=== PATIENT | male | born 1945 | race Two or more races ===

== ENCOUNTER 2021-03-26 01:17 | Inpatient (IN) | payer MEDICARE, OTHER ==
[~2021-03-26] VITALS: Ht 162.6 cm; Wt 72.6 kg
--- NOTE | 2021-03-26 01:22 | NUR ---
PT BIBRA C/O SOB X30 MIN PRIOR TO ARRIVAL. PT AAOX4 BREATHING EVENLY AND UNLABORED, SATURATING 98% RA. UPON ASSESSMENT, PT HAS ABD DISTENTION. PER PT, HE HAS HX OF PARACENTISIS AND WAS LAST DRAINED FEBRUARY 27. PT SKIN WARM, DRY, AND INTACT. PT ATTACHED TO MONITOR AND POX. EMT AT BEDSIDE FOR EKG. PT GIVEN BLANKET AND CALL LIGHT WITHIN REACH
--- NOTE | 2021-03-26 01:32 | NUR ---
BLOOD DRAWN AND SENT TO LAB
[2021-03-26 01:48] LABS: BASOPHILS # (AUTO) 0.1 /CMM (0.0-0.2); BASOPHILS % (AUTO) 0.8 % (0.0-2.0); EOSINOPHILS % (AUTO) 2.6 % (0.0-6.0); HEMATOCRIT 21 % (39-51); HEMOGLOBIN 7.6 g/dL (13.5-17.5); LYMPHOCYTES # (AUTO) 0.5 /CMM (0.8-4.8); LYMPHOCYTES % (AUTO) 6.7 % (20.0-44.0); MEAN CORPUSCULAR HGB CONC 37 g/dl (31.0-36.0); MEAN CORPUSCULAR VOLUME 106 fL (80-96); MONOCYTES # (AUTO) 0.4 /CMM (0.1-1.30); MONOCYTES % (AUTO) 5.5 % (2.0-12.0); NEUTROPHILS # (AUTO) 5.9 /CMM (1.8-8.9); NEUTROPHILS % (AUTO) 84.4 % (43.0-81.0); PLATELET COUNT (AUTO) 115 /CMM (150-450)
[2021-03-26 01:49] LABS: RED BLOOD CELL COUNT(AUTO) 1.96 MIL/uL (4.5-6.0)
[2021-03-26 02:12] LABS: CALCIUM, SERUM 8.3 mg/dL (8.5-10.1); CARBON DIOXIDE 23 mmol/L (21-32); CHLORIDE 105 mmol/L (98-107); GLUCOSE 219 mg/dL (74-106); POTASSIUM 4.8 mmol/L (3.5-5.1); SODIUM SERUM 139 mmol/L (136-145); UREA NITROGEN, BLOOD 71 mg/dL (7-18)
[2021-03-26 02:23] LABS: ALANINE AMINOTRANSFERASE 22 U/L (12-78); ALKALINE PHOSPHATASE 121 U/L (46-116); ASPARTATE AMINOTRANSFERASE 22 U/L (15-37); BILIRUBIN,DIRECT 0.2 mg/dL (0.0-0.2); BILIRUBIN,TOTAL 0.6 mg/dL (0.2-1.0); LIPASE 725 U/L (73-393); NT-PRO BNP 14364 pg/mL (0-125); TOTAL PROTEIN, SERUM 7.3 g/dL (6.4-8.2)
[2021-03-26 02:30] LABS: NEUTROPHILS % (MANUAL) 82 (42-76)
[2021-03-26 02:31] LABS: EOSINOPHILS % (MANUAL) 5 % (0-4); LYMPHOCYTES % (MANUAL) 7 % (16-48); MONOCYTES % (MANUAL) 6 % (0-11.0)
--- NOTE | 2021-03-26 03:12 | NUR ---
DAUGHTER, Oct [phone]
--- NOTE | 2021-03-26 04:43 | NUR ---
covid swab sent to lab
--- NOTE | 2021-03-26 06:59 | NUR ---
Silva rahman in [facility] - 03/26/21 at 0716 by ANGE gave report to JOSE DAVID Zamudio maribeth
--- NOTE | 2021-03-26 06:59 | NUR ---
gave report to JOSE DAVID Zamudio for maribeth. Transfer pt after shift change
--- NOTE | 2021-03-26 07:15 | NUR ---
gave report to aurelia Garcia for maribeth
--- NOTE | 2021-03-26 07:53 | NUR ---
PATIENT TRANSFERRED TO ROOM 307-1 VIA ACLS PROTOCOL. IN STABLE CONDITION. NEEDS ATTENDED. ENDORSED TO HIRA MAIN.
--- NOTE | 2021-03-26 08:00 | NUR ---
RN OPENING NOTE PT AWAKE IN BED RESTING. A/O X4 AND YI SPEAKING. NO COMPLAINT OF PAIN OR NAUSEA. CURRENTLY ON RA WITH NO SOB OR RESPIRATORY DISTRESS PRESENT. ON EXTERNAL ENTRY LEVEL LAB TECHNICIAN. PT HAS DISTENDED BOWEL. PT IS SELF AMBULATORY WITH BATHROOM PRIVILEGES. B UPPER EXTREMITIES HAVE DARKENED SKIN. PICTURES PLACED AND WOUND CARE CONSULT ORDERED. ON CARDIAC CCHO DIET. IV PRESENT ON L FA 22G AND FLUSHES WELL. SAFETY MEASURES IN PLACE. SIDE RAILS RAISED. BED LOWERED. CALL LIGHT WITHIN REACH. WILL CONTINUE TO MONITOR.
[2021-03-26 08:20] LABS: IRON, SERUM 87 ug/dl (50-175); TOTAL IRON BINDING CAPACITY 314 ug/dl (250-450)
[2021-03-26 08:30] VITALS: BP 167/76
[2021-03-26 08:44] LABS: MAGNESIUM 2.9 mg/dL (1.8-2.4); PHOSPHORUS 3.7 mg/dL (2.5-4.9)
[2021-03-26 08:46] LABS: THYROID STIMULATING HORMONE 87.649 uIU/mL (0.358-3.74)
[2021-03-26] MEDS: FUROSEMIDE 100 MG/10 ML VIAL IV SCH ×3 (08:46→17:17)
[2021-03-26] MEDS: HEPARIN SODIUM, PORCINE 5000 UNITS/1 ML VIAL SQ SCH ×2 (09:00→22:01)
[2021-03-26 09:23] LABS: ABG BASE EXCESS -3.4 mmol/L; ABG OXYGEN SATURATION 94.3 % (92.0-98.5); ABG PCO2 26.8 mmHg (35.0-45.0); ABG PO2 71.7 mmHg (75.0-100.0); AaDO2 45.9 mmHg; COHb 1.4 % (0.5-1.5); MetHb 0.3 % (0.0-1.5); O2Hb 92.7 % (94.0-97.0); SITE, ABG Right Radial; VENT MODE, BG room air
[2021-03-26] MEDS ORDERED: ONDANSETRON HCL/PF 4 MG/2 ML VIAL IVP PRN (10:00)
[2021-03-26] MEDS ORDERED: ZOLPIDEM TARTRATE 5 MG TABLET PO PRN (10:00)
[2021-03-26] MEDS ORDERED: MAGNESIUM HYDROXIDE 30 ML UDC PO PRN (10:00)
[2021-03-26] MEDS ORDERED: ACETAMINOPHEN 325 MG TABLET PO PRN (10:00)
[2021-03-26] MEDS ORDERED: HYDROCODONE/APAP 5/325MG TABLET PO PRN (10:00)
[2021-03-26] MEDS ORDERED: Z GUARD REMEDY 2 OZ OINT TP PRN (10:00)
--- NOTE | 2021-03-26 10:00 | NUR ---
RN NOTE HEPARIN HELD DUE TO PLATELET OF 115 AND UPCOMING THORACENTESIS PROCEDURE. CHARGE NURSE NOTIFIED. WILL CONTINUE TO MONITOR.
[2021-03-26] MEDS ORDERED: DEXTROSE 50%-WATER 50 ML DISP.SYRIN IV PRN (11:30)
[2021-03-26] MEDS: LEVOTHYROXINE SODIUM 125 MCG TABLET PO SCH (11:57)
[2021-03-26] MEDS: hydrALAZINE HCL 50 MG TABLET PO SCH ×2 (11:58→22:08)
[2021-03-26] MEDS: LABETALOL HCL (100MG) 100 MG TABLET PO SCH ×2 (11:58→21:00)
[2021-03-26] MEDS: FINASTERIDE (5 MG) 5 MG TABLET PO SCH (11:58)
[2021-03-26] MEDS: ALLOPURINOL 100 MG TABLET PO SCH ×2 (11:58→17:17)
[2021-03-26 12:00] VITALS: BP 161/69
[2021-03-26] MEDS: BLOOD SUGAR DIAGNOSTIC 1 EACH STRIP IN SCH ×3 (12:00→22:09)
[2021-03-26] MEDS ORDERED: ATOR40TA PO (12:40)
[2021-03-26] MEDS ORDERED: EPOE1VIA SQ (12:40)
[2021-03-26] MEDS ORDERED: LEVO112T2 PO (12:40)
[2021-03-26] MEDS ORDERED: LABE100T5 PO (12:40)
[2021-03-26] MEDS ORDERED: METO2.5T2 PO (12:40)
[2021-03-26] MEDS ORDERED: TAMS-12 PO (12:40)
[2021-03-26] MEDS ORDERED: SILD20TA2 PO (12:40)
[2021-03-26] MEDS ORDERED: HYDR100T27 PO ×2 (12:40)
[2021-03-26] MEDS ORDERED: FINA5TAB11 PO (12:40)
[2021-03-26] MEDS ORDERED: ALLO100T PO (12:40)
--- NOTE | 2021-03-26 13:26 | NUR ---
RN NOTE PT DID NOT EAT LUNCH. REFUSED BLOOD SUGAR CHECK. NO SIGNS OF HYPER/HYPOGLYCEMIA. WILL CONTINUE TO MONITOR.
[2021-03-26] MEDS: SILDENAFIL CITRATE 20 MG TABLET PO SCH ×2 (13:50→17:17)
[2021-03-26 16:00] VITALS: BP 149/66
[2021-03-26] MEDS ORDERED: FUROSEMIDE 100 MG/10 ML VIAL ONE (17:16)
--- NOTE | 2021-03-26 18:29 | NUR ---
RN CLOSING NOTE PT AWAKE IN BED RESTING. A/O X4 AND TANZANIAN SPEAKING. NO COMPLAINT OF PAIN OR NAUSEA. CURRENTLY ON RA WITH NO SOB OR RESPIRATORY DISTRESS PRESENT. ON EXTERNAL TUBE STATION ATTENDANT. PT HAS DISTENDED BOWEL. PT IS SELF AMBULATORY WITH BATHROOM PRIVILEGES. B UPPER EXTREMITIES HAVE DARKENED SKIN. IV PRESENT ON L FA 22G AND FLUSHES WELL. SAFETY MEASURES IN PLACE. SIDE RAILS RAISED. BED LOWERED. CALL LIGHT WITHIN REACH. REPORT TO BE GIVEN TO NIGHT NURSE FOR KENDY.
--- NOTE | 2021-03-26 19:15 | NUR ---
RN OPENING NOTE PATIENT IN BED SLEEPING, EASILY AWAKENED. A/O X 4. PATIENT ABLE TO MAKE NEEDS KNOWN. HE IS S/P PARACENTESIS TODAY. DOES NOT COMPLAIN OF PAIN AT THIS TIME. BREATHING EVEN AND UNLABORED. ABDOMEN ENLARGED D/T ASCITES. IV ACCESS PATENT AND INTACT. SAFETY MEASURES IN PLACE: CALL LIGHT WITHIN REACH, BED IN LOCKED AND LOWEST POSITION, SIDE RAILS UP. WILL MONITOR PATIENT CLOSELY.
[2021-03-26 20:00] VITALS: BP 118/42
[2021-03-26] MEDS: ATORVASTATIN 40 MG TABLET PO SCH (22:02)
[2021-03-26] MEDS: TAMSULOSIN 0.4 MG CAP.SR.24H PO SCH (22:02)
[2021-03-26] MEDS: INSULIN REGULAR, HUMAN 100 UNIT/ML 3 ML VIAL SQ PRN (22:50)
[2021-03-27] VITALS: BP 140/60
[2021-03-27 04:00] VITALS: BP 161/69
[2021-03-27] MEDS: hydrALAZINE HCL 50 MG TABLET PO SCH ×3 (05:12→21:56)
--- NOTE | 2021-03-27 06:49 | NUR ---
RN OPENING NOTE PATIENT IN BED SLEEPING, EASILY AWAKENED. A/O X 4. PATIENT ABLE TO MAKE NEEDS KNOWN. DOES NOT COMPLAIN OF PAIN AT THIS TIME. BREATHING EVEN AND UNLABORED. ABDOMEN ENLARGED D/T ASCITES. IV ACCESS PATENT AND INTACT. SAFETY MEASURES MAINTAINED: CALL LIGHT WITHIN REACH, BED IN LOCKED AND LOWEST POSITION, SIDE RAILS UP. BS 144 AT 2200 AND 96 MG/DL AT 0630. ALL NEEDS MET AND ATTENDED. ALL ORDERS CARRIED OUT. WILL ENDORSE TO DAY SHIFT NURSE FOR KENDY. Addendum: 03/27/21 at 0653 by RUHTY BRAVO RN CLOSING NOTE
[2021-03-27 07:02] LABS: ALANINE AMINOTRANSFERASE 16 U/L (12-78); ALKALINE PHOSPHATASE 116 U/L (46-116); ASPARTATE AMINOTRANSFERASE 21 U/L (15-37); BILIRUBIN,TOTAL 0.9 mg/dL (0.2-1.0); CALCIUM, SERUM 8.8 mg/dL (8.5-10.1); CARBON DIOXIDE 25 mmol/L (21-32); CHLORIDE 104 mmol/L (98-107); CREATININE 2.8 mg/dL (0.6-1.3); GLUCOSE 101 mg/dL (74-106); MAGNESIUM 2.8 mg/dL (1.8-2.4); PHOSPHORUS 4.8 mg/dL (2.5-4.9); SODIUM SERUM 140 mmol/L (136-145); TOTAL PROTEIN, SERUM 7.5 g/dL (6.4-8.2); UREA NITROGEN, BLOOD 64 mg/dL (7-18)
[2021-03-27] MEDS: BLOOD SUGAR DIAGNOSTIC 1 EACH STRIP IN SCH ×4 (07:04→21:57)
[2021-03-27 07:53] LABS: BASOPHILS # (AUTO) 0.1 /CMM (0.0-0.2); EOSINOPHILS % (AUTO) 3.2 % (0.0-6.0); HEMATOCRIT 26 % (39-51); HEMOGLOBIN 8.1 g/dL (13.5-17.5); LYMPHOCYTES # (AUTO) 0.8 /CMM (0.8-4.8); LYMPHOCYTES % (AUTO) 10.1 % (20.0-44.0); MEAN CORPUSCULAR HGB CONC 32 g/dl (31.0-36.0); MEAN CORPUSCULAR VOLUME 95 fL (80-96); MONOCYTES # (AUTO) 0.3 /CMM (0.1-1.30); MONOCYTES % (AUTO) 4.5 % (2.0-12.0); NEUTROPHILS % (AUTO) 81.2 % (43.0-81.0); PLATELET COUNT (AUTO) 155 /CMM (150-450); RED BLOOD CELL COUNT(AUTO) 2.68 MIL/uL (4.5-6.0); WHITE BLOOD COUNT (AUTO) 7.4 K/uL (4.3-11.0)
[2021-03-27 08:00] VITALS: BP 140/57
--- NOTE | 2021-03-27 08:00 | NUR ---
ZOO DIRECTOR OPENING NOTE PATIENT IN BED RESTING, PATIENT IS IN NO ACUTE DISTRESS. PATIENT IS ON ROOM AIR TOLERATING WELL. PATIENT IS ON TELE MONITOR READING SINUS OSMAR 58, WITH OCCASIONAL JUNCTIONAL RHYTHM . SAFETY PRECAUTIONS ARE ON, BED IS LOCKED IN THE LOWEST POSITION, WITH SIDE RAILS UP, CALL LIGHT WITHIN REACH. WILL CONTINUE TO MONITOR CLOSELY.
[2021-03-27] MEDS: FINASTERIDE (5 MG) 5 MG TABLET PO SCH (09:42)
[2021-03-27] MEDS: LEVOTHYROXINE SODIUM 125 MCG TABLET PO SCH (09:42)
[2021-03-27] MEDS: LABETALOL HCL (100MG) 100 MG TABLET PO SCH ×2 (09:42→21:54)
[2021-03-27] MEDS: ALLOPURINOL 100 MG TABLET PO SCH ×2 (09:43→17:41)
[2021-03-27] MEDS: SILDENAFIL CITRATE 20 MG TABLET PO SCH ×3 (09:43→17:41)
[2021-03-27] MEDS: HEPARIN SODIUM, PORCINE 5000 UNITS/1 ML VIAL SQ SCH ×2 (09:45→21:58)
--- NOTE | 2021-03-27 10:57 | NUR ---
FLOOR SUPERVISOR NOTE PATIENT WAS NPO FOR THE CT, RESUMED DIET SINCE PATIENT IS DIABETIC
[2021-03-27 11:07] LABS: *SPE A/G RATIO 0.8 (0.7-1.7); *SPE ALPHA-1-GLOBULIN 0.3 g/dL (0.0-0.4); *SPE ALPHA-2-GLOBULIN 0.9 g/dL (0.4-1.0); *SPE BETA GLOBULIN 1.1 g/dL (0.7-1.3); *SPE GLOBULIN, TOTAL 3.7 g/dL (2.2-3.9); *SPE M-SPIKE Not Observed g/dL (Not Observed); *SPEGAMMA GLOBULIN 1.4 g/dL (0.4-1.8)
[2021-03-27 14:22] LABS: PROSTATE SPECIFIC ANTIGEN SCR 2.92 ng/mL (0.00-4.00)
--- NOTE | 2021-03-27 15:34 | NUR ---
SS consult: SS consult requested for disability paperwork.The pt. is a 76 year old [place] male. SW met with pt. bedside and provided him with disability paperwork. SW informed him that his PCP is to complete the paperwork. Pt. expressed understanding. SW provided pt. with SW extension if needed. SW will be available.
[2021-03-27] MEDS: INSULIN REGULAR, HUMAN 100 UNIT/ML 3 ML VIAL SQ PRN (17:43)
--- NOTE | 2021-03-27 18:40 | NUR ---
QUALITY PROCESS LEAD CLOSING NOTE PATIENT IN BED RESTING, PATIENT IS IN NO ACUTE DISTRESS. PATIENT IS ON ROOM AIR TOLERATING WELL. PATIENT IS ON TELE MONITOR READING SINUS OSMAR 55, WITH OCCASIONAL JUNCTIONAL RHYTHM . SAFETY PRECAUTIONS ARE ON, BED IS LOCKED IN THE LOWEST POSITION, WITH SIDE RAILS UP, CALL LIGHT WITHIN REACH. ENDORSE PATIENT TO SAT INSTRUCTOR NURSE FOR KEDNY.
[2021-03-27 20:00] VITALS: BP 155/63
--- NOTE | 2021-03-27 20:32 | NUR ---
MS/TELE/RN RECEIVED PATIENT LYING IN BED APPEAR SLEEPING, APPEAR COMFORTABLE, NO SIGNS OF DISTRESS NOTED, CALL LIGHT IN REACH, WILL MONITOR.
[2021-03-27] MEDS: TAMSULOSIN 0.4 MG CAP.SR.24H PO SCH (21:56)
[2021-03-27] MEDS: ATORVASTATIN 40 MG TABLET PO SCH (21:56)
[2021-03-28] VITALS: BP 119/46
[2021-03-28] MEDS: hydrALAZINE HCL 50 MG TABLET PO SCH ×2 (05:49→13:00)
--- NOTE | 2021-03-28 06:10 | NUR ---
MS/TELE/RN PATIENT IS AWAKE, ALERT, COMFORTABLE, NO C/O PAIN, NO DISTRESS NOTED, CALL LIGHT IN REACH, NPO EXCEPT MEDICATION SINCE MIDNIGHT FOR A PROCEDURE TODAY, ALL NEEDS ATTENDED AT THIS TIME, WILL CONTINUE TO MONITOR.
--- NOTE | 2021-03-28 07:15 | NUR ---
RN NOTES PATIENT RESTING IN BED, EYES CLOSED, ABLE TO BE AWAKENED. BREATHING EVEN AND UNLABORED, TOLERATING ROOM AIR. CURRENTLY NPO EXCEPT MEDS, ONCOLOGIST AND GAS OPERATIONS ANALYST TO FOLLOW-UP. LAST ACCU-CHECK TAKEN BY FOOD CHECKERS AND CASHIERS SUPERVISOR RN. SAFETY PRECS IN PLACE. WILL CONTINUE TO MONITOR.
[2021-03-28] MEDS: BLOOD SUGAR DIAGNOSTIC 1 EACH STRIP IN SCH ×2 (07:47→11:53)
[2021-03-28 08:07] LABS: IMMUNOGLOBULIN A, SERUM 405 mg/dL (61-437); IMMUNOGLOBULIN G, SERUM 1447 mg/dL (603-1613); IMMUNOGLOBULIN M, SERUM 114 mg/dL (15-143)
[2021-03-28] MEDS: FINASTERIDE (5 MG) 5 MG TABLET PO SCH (08:33)
[2021-03-28] MEDS: LEVOTHYROXINE SODIUM 125 MCG TABLET PO SCH (08:33)
[2021-03-28] MEDS: ALLOPURINOL 100 MG TABLET PO SCH (08:33)
[2021-03-28] MEDS: LABETALOL HCL (100MG) 100 MG TABLET PO SCH (08:37)
[2021-03-28] MEDS: SILDENAFIL CITRATE 20 MG TABLET PO SCH ×2 (08:37→12:58)
[2021-03-28] MEDS: HEPARIN SODIUM, PORCINE 5000 UNITS/1 ML VIAL SQ SCH (08:44)
[2021-03-28] MEDS ORDERED: LEVO125T PO (09:20)
[2021-03-28] MEDS ORDERED: HYDR-4077 PO (09:20)
[2021-03-28 10:07] LABS: *ANA ANTI-CENTROMERE B AB <0.2 AI (0.0-0.9); *ANA ANTI-DNA(DS) AB, QN 2 IU/mL (0-9); *ANA ANTI-JO-1 <0.2 AI (0.0-0.9); *ANA ANTICHROMATIN ANTIBODY <0.2 AI (0.0-0.9); *ANA RNP ANTIBODIES 0.3 AI (0.0-0.9); *ANA SJOGREN'S ANTI-SS-A <0.2 AI (0.0-0.9); *ANA SJOGREN'S ANTI-SS-B <0.2 AI (0.0-0.9); *ANAANTI-SCLERODERMA-70 AB <0.2 AI (0.0-0.9); *ANASMITH AB <0.2 AI (0.0-0.9)
[2021-03-28 10:20] LABS: CALCIUM, SERUM 8.3 mg/dL (8.5-10.1); CARBON DIOXIDE 25 mmol/L (21-32); CHLORIDE 104 mmol/L (98-107); CREATININE 2.8 mg/dL (0.6-1.3); GLUCOSE 143 mg/dL (74-106); POTASSIUM 3.9 mmol/L (3.5-5.1); SODIUM SERUM 140 mmol/L (136-145); UREA NITROGEN, BLOOD 68 mg/dL (7-18)
[2021-03-28 10:35] LABS: BASOPHILS # (AUTO) 0.1 /CMM (0.0-0.2); BASOPHILS % (AUTO) 1.3 % (0.0-2.0); EOSINOPHILS % (AUTO) 3.9 % (0.0-6.0); HEMATOCRIT 24 % (39-51); HEMOGLOBIN 7.7 g/dL (13.5-17.5); LYMPHOCYTES # (AUTO) 0.8 /CMM (0.8-4.8); LYMPHOCYTES % (AUTO) 11.7 % (20.0-44.0); MEAN CORPUSCULAR HGB CONC 33 g/dl (31.0-36.0); MEAN CORPUSCULAR VOLUME 94 fL (80-96); MONOCYTES # (AUTO) 0.4 /CMM (0.1-1.30); MONOCYTES % (AUTO) 6.5 % (2.0-12.0); NEUTROPHILS # (AUTO) 5.2 /CMM (1.8-8.9); NEUTROPHILS % (AUTO) 76.6 % (43.0-81.0); PLATELET COUNT (AUTO) 144 /CMM (150-450); RED BLOOD CELL COUNT(AUTO) 2.51 MIL/uL (4.5-6.0); WHITE BLOOD COUNT (AUTO) 6.7 K/uL (4.3-11.0)
[2021-03-28] MEDS: INSULIN REGULAR, HUMAN 100 UNIT/ML 3 ML VIAL SQ PRN (11:57)
--- NOTE | 2021-03-28 12:15 | NUR ---
RN NOTES SPOKE W/ BERENICE FOSS ([phone]) AND MADE AWARE OF DISCHARGE FOR PATIENT; PER BERENICE, WILL BUSSER PATIENT BETWEEN [phone] TODAY.
--- NOTE | 2021-03-28 12:30 | NUR ---
RN NOTES PATIENT EATING LUNCH AT THIS TIME, NO COMPLAINTS VERBALIZED. CHIEF LOAD DISPATCHER TO CLEAN PATIENT PRIOR TO DISCHARGE FROM HOSPITAL.
[2021-03-28 13:00] VITALS: BP 127/58
--- NOTE | 2021-03-28 15:14 | NUR ---
SAFETY NET MAKER NOTES PATIENT WAS SEEN BY DR. DUKES W/ ORDER FOR DISCHARGE TO HOME W/ NEPHRO FOLLOW-UP W/ FRESH MEAT GRADER AT [facility], AWARE PER DR. DUKES. DISCHARGE INSTRUCTION AND EDUCATION GIVEN TO PATIENT, VERBALIZED UNDERSTANDING; PATIENT TO CONTINUE HOME MEDICATIONS AND TO START ON HYDRALAZINE AND LEVOTHYROXINE, PRESCRIPTION GIVEN TO PATIENT. DISCHARGE FORM AND BELONGINGS LIST FORM SIGNED BY PATIENT AND ALL BELONGINGS ACCOUNTED FOR. NAME ARMBAND AND IV LINE REMOVED. PATIENT WAS ACCOMPANIED TO THE LOBBY VIA WHEELCHAIR AND PICKED UP BY FAMILY VIA PRIVATE CAR. CHARGE NURSE AND MD AWARE OF DISCHARGE.
== END 2021-03-28 15:14 | disposition home or self-care (01) | DRG 291 ==
LOC: ER 01:19 → TELE 05:14 → MED 03-28 10:03
PROVIDERS: ADMIT Nurse Practitioner Acute Care; ATTEND Nurse Practitioner Acute Care
PROC: 0W9G3ZZ Drainage of Peritoneal Cavity, Percutaneous Approach (ICD-10-PCS; principal; 2021-03-26)
DX: I13.0 Hypertensive heart and chronic kidney disease with heart failure and stage 1 through stage 4 chronic kidney disease, or unspecified chronic kidney disease (principal); I50.33 Acute on chronic diastolic (congestive) heart failure; N17.0 Acute kidney failure with tubular necrosis; D61.818 Other pancytopenia; E44.1 Mild protein-calorie malnutrition; Q61.9 Cystic kidney disease, unspecified; R18.8 Other ascites; J90 Pleural effusion, not elsewhere classified; H54.61 Unqualified visual loss, right eye, normal vision left eye; M10.9 Gout, unspecified; I25.10 Atherosclerotic heart disease of native coronary artery without angina pectoris; N18.9 Chronic kidney disease, unspecified; E11.22 Type 2 diabetes mellitus with diabetic chronic kidney disease; N28.89 Other specified disorders of kidney and ureter; E03.9 Hypothyroidism, unspecified; D53.9 Nutritional anemia, unspecified; I27.21 Secondary pulmonary arterial hypertension; Z95.1 Presence of aortocoronary bypass graft; E88.09 Other disorders of plasma-protein metabolism, not elsewhere classified; R16.2 Hepatomegaly with splenomegaly, not elsewhere classified; R74.8 Abnormal levels of other serum enzymes; K82.8 Other specified diseases of gallbladder; N40.0 Benign prostatic hyperplasia without lower urinary tract symptoms; Z68.27 Body mass index [BMI] 27.0-27.9, adult; Z20.822 Contact with and (suspected) exposure to COVID-19
CPT/HCPCS: 36415; 36600; 71045-TC; 71250-TC; 74018; 76700-TC; 76942-TC; 80048-TC; 80053-TC; 80061-TC; 80076-TC; 82150-TC; 82378; 82728-TC; 82784; 82803-TC; 82962-TC; 83540-TC; 83615-TC; 83690-TC; 83735-TC; 83880; 84100-TC; 84153-TC; 84154-TC; 84155; 84155-TC; 84165; 84439-TC; 84443-TC; 84484-TC; 85025-TC; 85610-TC; 86225; 86235; 86334; 86431-TC; 86706; 86803; 87081-TC; 87340; 93307-TC; 93970-TC; G0378; J1644; J1815; J1940